=== PATIENT | female | born 1970 | race Caucasian/White ===

== ENCOUNTER 2018-09-06 07:07 | Outpatient (CLI) | payer BC ==
--- NOTE | 2018-09-06 07:48 | ULT ---
RENAL ULTRASOUND: HISTORY: Left flank pain. FINDINGS: Real-time imaging of the right and left kidneys was performed. The right kidney measured 9.8 and the left kidney 9.9 cm in size. No signs of cyst, mass, or obstruction. The bladder was empty at the t hannah of this examination. IMPRESSION: Unremarkable renal ultrasound. POS: ODALIS
== END 2018-09-06 07:08 | disposition home or self-care (01) ==
LOC: SCSULT 07:07
PROVIDERS: ATTEND Family Medicine
DX: R10.9 Unspecified abdominal pain (principal)
CPT/HCPCS: 76770

== ENCOUNTER 2018-12-20 07:56 | Outpatient (CLI) | payer BC ==
--- NOTE | 2018-12-20 08:38 | RAD ---
2 views of the left hip: 12/20/2018 COMPARISON: None HISTORY: Left hip pain, sciatica FINDINGS: Mild lateral acetabular osteophyte formation. Degenerative changes pubic symphysis noted. T here is no displaced fracture or dislocation seen. IMPRESSION: Mild lateral acetabular osteophyte formation. No acute osseous abnormality.
== END 2018-12-20 07:57 | disposition home or self-care (01) ==
LOC: SCSRAD 07:56
PROVIDERS: ATTEND Family Medicine
DX: M54.5 Low back pain (principal); M25.752 Osteophyte, left hip

== ENCOUNTER 2025-03-20 08:01 | Outpatient (CLI) | payer BC | END 2025-03-20 08:02 | disposition home or self-care (01) | LOC: SCSMRI 08:01 → SCSRAD 08:02 | PROVIDERS: ATTEND Orthopaedic Surgery | DX: M54.50 Low back pain, unspecified (principal); Z98.890 Other specified postprocedural states | CPT/HCPCS: 72100 ==

== ENCOUNTER 2025-04-26 13:41 | Outpatient (CLI) | payer BC | END 2025-04-26 13:42 | disposition home or self-care (01) | LOC: SCSRAD 13:41 | PROVIDERS: ATTEND Orthopaedic Surgery | DX: M54.50 Low back pain, unspecified (principal); M46.1 Sacroiliitis, not elsewhere classified; M43.16 Spondylolisthesis, lumbar region; M51.369 Other intervertebral disc degeneration, lumbar region without mention of lumbar back pain or lower extremity pain; Z98.1 Arthrodesis status; Z98.890 Other specified postprocedural states | CPT/HCPCS: 72100; 72190 ==

== ENCOUNTER 2025-06-11 10:24 | Outpatient (CLI) | payer BC | END 2025-06-11 10:25 | disposition home or self-care (01) | LOC: SCSRAD 10:24 | PROVIDERS: ATTEND Orthopaedic Surgery | DX: M54.50 Low back pain, unspecified (principal); Z98.1 Arthrodesis status; M40.46 Postural lordosis, lumbar region; M43.16 Spondylolisthesis, lumbar region; M47.816 Spondylosis without myelopathy or radiculopathy, lumbar region; M48.061 Spinal stenosis, lumbar region without neurogenic claudication; M47.817 Spondylosis without myelopathy or radiculopathy, lumbosacral region; M48.07 Spinal stenosis, lumbosacral region | CPT/HCPCS: 72100 ==